=== PATIENT | female | born 1995 | race Two or more races ===

== ENCOUNTER 2018-10-10 11:45 | Inpatient (IN) | payer OTHER ==
[~2018-10-10] VITALS: Ht 165.1 cm; Wt 72.1 kg
[2018-11-01] MEDS ORDERED: ZANTAC300 MG PO (09:03)
== END 2018-11-04 12:20 | disposition home or self-care (01) | DRG 788 ==
LOC: OB/GYN 10-30 11:45 → LDR 11-01 07:03 → OB/GYN 11-02 01:59
PROVIDERS: ADMIT Specialist
PROC: 3E033VJ Introduction of Other Hormone into Peripheral Vein, Percutaneous Approach (ICD-10-PCS; 2018-11-01)
PROC: 4A1HX4Z Monitoring of Products of Conception, Cardiac Electrical Activity, External Approach (ICD-10-PCS; 2018-11-01)
PROC: 10D00Z2 Extraction of Products of Conception, Extraperitoneal, Open Approach (ICD-10-PCS; principal; 2018-11-02 07:00)
DX: O33.9 Maternal care for disproportion, unspecified (principal); O61.0 Failed medical induction of labor; Z3A.40 40 weeks gestation of pregnancy; Z37.0 Single live birth

== ENCOUNTER 2018-11-15 18:57 | Emergency (ER) | payer OTHER ==
[~2018-11-15] VITALS: Ht 165.1 cm; Wt 64.4 kg
[~2018-11-15 18:57] MED LIST: ZANTAC300 MG PO
== END 2018-11-16 10:00 | disposition home or self-care (01) ==
LOC: ER 18:57
DX: N93.8 Other specified abnormal uterine and vaginal bleeding (principal); O94 Sequelae of complication of pregnancy, childbirth, and the puerperium